=== PATIENT | female | born 1995 | race Asian ===

== ENCOUNTER 2016-08-29 00:29 | Inpatient (IN) | payer SELFPAY ==
[~2016-08-29] VITALS: Ht 160 cm; Wt 70.5 kg
[2016-08-29] VITALS (624 sets, daily range): BP systolic 129–143; BP diastolic 85–89; PULSE 104–133; TEMP 97.8–103.5; O2SAT 69–100
[2016-08-29 00:52] LABS: BASO # 0.1 (0.0-0.2); BASO % 0.3 % (0.0-2.0); EOS # 0.1 (0.0-0.7); EOS % 0.5 % (0-4.0); GRAN # 11.8 (1.4-6.5); GRAN % 64.3 % (42.2-75.2); HEMATOCRIT 42.5 % (37.0-47.0); HEMOGLOBIN 14.1 g/dl (12.5-16.0); LYMPH # 5.7 (1.2-3.4); MEAN CELL VOLUME 91 fl (80.0-100.0); MEAN CORPUSCULAR HEMOGLOBIN 30 pg (27.0-31.0); MEAN CORPUSCULAR HGB CONC 33 g/dl (33.0-37.0); MEAN PLATELET VOLUME 9.3 fl (7.4-10.4); MONO # 0.6 (0.1-0.6); MONO % 3.2 % (1.7-9.3); PLATELET COUNT 290 K/mm3 (130-400); RED BLOOD COUNT 4.68 M/mm3 (4.10-5.30); REDCELL DISTRIBUTION WIDTH-CV 12.7 % (11.5-14.5); WHITE BLOOD COUNT 18.4 K/mm3 (4.8-10.8)
[2016-08-29 01:01] LABS: PROTHROMBIN TIME 11.5 SECONDS (9.7-12.8)
[2016-08-29 01:04] LABS: ADJUSTED CALCIUM 8.9 mg/dL (8.4-10.2); ALANINE AMINOTRANSFERASE 22 U/L (9-52); ALBUMIN 4.9 gm/dL (3.5-5.0); ALKALINE PHOSPHATASE 63 U/L (50-136); ANION GAP 18 mmol/L (7-16); BILIRUBIN,TOTAL 1.2 mg/dL (0.0-1.0); BLOOD UREA NITROGEN 11 mg/dL (7-17); CALCIUM 9.6 mg/dL (8.4-10.2); CARBON DIOXIDE 21 mmol/L (22-30); CHLORIDE 104 mmol/L (98-107); CREATININE, serum 0.84 mg/dL (0.52-1.25); GLUCOSE 143 mg/dL (74-106); PARTIAL THROMBOPLASTIN TIME 27.5 SECONDS (26.0-37.0); POTASSIUM 3.1 mmol/L (3.4-5.0); SODIUM 143 mmol/L (137-145); TOTAL PROTEIN 8.7 gm/dL (6.4-8.2)
[2016-08-29 01:34] LABS: ACETAMINOPHEN < 10 ug/mL (10-30); SALICYLATE < 1.0 mg/dL
[2016-08-29 01:39] LABS: HYALINE CAST >12 /lpf; PH 7 (5-8); SQUAMOUS EPITHELIAL 0-2 /hpf; URINE APPEARANCE Hazy; URINE BACTERIA None Seen /hpf; URINE BILIRUBIN Negative (NEGATIVE); URINE BLOOD 3+ (NEGATIVE); URINE COLOR Yellow; URINE GLUCOSE Negative (NEGATIVE); URINE KETONE Negative (NEGATIVE); URINE UROBILINOGEN Negative (NEGATIVE); URINE WBC 0-2 /hpf
[2016-08-29 01:42] LABS: AMPHETAMINE URINE NEGATIVE; BARBITURATES URINE NEGATIVE; BENZODIAZEPINES URINE NEGATIVE; BUPRENORPHINE URINE NEGATIVE; METHADONE URINE NEGATIVE; OPIATES URINE NEGATIVE; OXYCODONE URINE NEGATIVE; PHENCYCLIDINE URINE NEGATIVE; PROPOXYPHENE URINE NEGATIVE; THC CANNABINOIDS URINE NEGATIVE
[2016-08-29 04:06] LABS: PH 6 (5-8); SQUAMOUS EPITHELIAL None Seen /hpf; URINE APPEARANCE Clear; URINE BACTERIA Rare /hpf; URINE BILIRUBIN Negative (NEGATIVE); URINE BLOOD 3+ (NEGATIVE); URINE COLOR Yellow; URINE GLUCOSE Negative (NEGATIVE); URINE KETONE Trace (NEGATIVE); URINE RBC >50 /hpf; URINE UROBILINOGEN Negative (NEGATIVE)
[2016-08-29 04:07] LABS: URINE WBC 0-2 /hpf
[2016-08-29 06:57] LABS: ADJUSTED CALCIUM 8.6 mg/dL (8.4-10.2); ALBUMIN 4.4 gm/dL (3.5-5.0); BILIRUBIN,TOTAL 1.2 mg/dL (0.0-1.0); CALCIUM 8.9 mg/dL (8.4-10.2); CREATININE, serum 0.73 mg/dL (0.52-1.25); POTASSIUM 3.8 mmol/L (3.4-5.0); TOTAL PROTEIN 7.7 gm/dL (6.4-8.2)
[2016-08-29 07:02] LABS: HEMOGLOBIN 12.8 g/dl (12.5-16.0); MEAN CELL VOLUME 92 fl (80.0-100.0); MEAN CORPUSCULAR HEMOGLOBIN 30 pg (27.0-31.0); MEAN CORPUSCULAR HGB CONC 33 g/dl (33.0-37.0); MEAN PLATELET VOLUME 9.3 fl (7.4-10.4); PLATELET COUNT 213 K/mm3 (130-400); RED BLOOD COUNT 4.24 M/mm3 (4.10-5.30); REDCELL DISTRIBUTION WIDTH-CV 12.8 % (11.5-14.5); WHITE BLOOD COUNT 12.5 K/mm3 (4.8-10.8)
[2016-08-29 07:23] LABS: ADD PATHOLOGY DIFF REVIEW NO
[2016-08-29 08:42] LABS: BAND 20 % (0-10); NEUTROPHILS 72 % (42.0-75.2); PLATELET ESTIMATE NORMAL (NORMAL); TOTAL CELLS COUNTED 100
[2016-08-29 17:39] LABS: BASO % 0.3 % (0.0-2.0); GRAN # 6.9 (1.4-6.5); HEMATOCRIT 34.4 % (37.0-47.0); HEMOGLOBIN 11.4 g/dl (12.5-16.0); LYMPH # 0.5 (1.2-3.4); LYMPH % 6.8 % (20.0-51.0); MEAN CELL VOLUME 91 fl (80.0-100.0); MEAN CORPUSCULAR HEMOGLOBIN 30 pg (27.0-31.0); MEAN CORPUSCULAR HGB CONC 33 g/dl (33.0-37.0); MEAN PLATELET VOLUME 9.3 fl (7.4-10.4); MONO # 0.4 (0.1-0.6); MONO % 5.5 % (1.7-9.3); PLATELET COUNT 182 K/mm3 (130-400); RED BLOOD COUNT 3.79 M/mm3 (4.10-5.30); WHITE BLOOD COUNT 7.9 K/mm3 (4.8-10.8)
[2016-08-29 17:49] LABS: ADJUSTED CALCIUM 8.4 mg/dL (8.4-10.2); ALBUMIN 3.3 gm/dL (3.5-5.0); BILIRUBIN,TOTAL 1.2 mg/dL (0.0-1.0); CALCIUM 7.8 mg/dL (8.4-10.2); CREATININE, serum 0.61 mg/dL (0.52-1.25); POTASSIUM 3.8 mmol/L (3.4-5.0); TOTAL PROTEIN 6.2 gm/dL (6.4-8.2)
[2016-08-29 17:54] LABS: INR 1.2 (0.8-3.0); PROTHROMBIN TIME 13.5 SECONDS (9.7-12.8)
[2016-08-29 18:11] LABS: TROPONIN-I 0.038 ng/mL (0.000-0.034)
== END 2016-08-29 17:51 | disposition short-term general hospital (02) | DRG 918 ==
LOC: COL.ER 00:29 → ICU 01:48
PROVIDERS: Emergency Medicine; Internal Medicine; Internal Medicine Gastroenterology
PROC: 02HV33Z Insertion of Infusion Device into Superior Vena Cava, Percutaneous Approach (ICD-10-PCS; 2016-08-29)
PROC: 0DJ08ZZ Inspection of Upper Intestinal Tract, Via Natural or Artificial Opening Endoscopic (ICD-10-PCS; principal; 2016-08-29 08:00)
DX: T54.3X2A Toxic effect of corrosive alkalis and alkali-like substances, intentional self-harm, initial encounter (principal); E87.2 Acidosis; E87.6 Hypokalemia
CPT/HCPCS: C1751; C9113; J1650; J1720; J2060; J2270; J2405; J2543; J2550; J2704; J2765; J3010; J3480; J7030; J7050; Q9967

== ENCOUNTER 2016-09-17 11:59 | Emergency (ER) | payer OTHER ==
[~2016-09-17] VITALS: Ht 170.2 cm; Wt 71.9 kg
[2016-09-17] MEDS ORDERED: PERCOCET 325 MG1 TAB PO (12:07)
[2016-09-17 13:03] VITALS: BP 108/76; PULSE 100; TEMP 97.7
== END 2016-09-17 13:15 | disposition home or self-care (01) ==
LOC: COL.ER 11:59
DX: Z48.815 Encounter for surgical aftercare following surgery on the digestive system (principal); Z48.01 Encounter for change or removal of surgical wound dressing; Z43.1 Encounter for attention to gastrostomy

== ENCOUNTER 2016-11-05 21:00 | Emergency (ER) | payer OTHER ==
[~2016-11-05] VITALS: Ht 171 cm; Wt 61.4 kg
[~2016-11-05 21:00] MED LIST: PERCOCET 325 MG1 TAB PO
[2016-11-05 21:03] VITALS: TEMP 98.7
[2016-11-05] MEDS ORDERED: TYLEINFANT PO (22:39)
[2016-11-05] MEDS ORDERED: MILK OF MA400 MG/52 (22:40)
[2016-11-05] MEDS ORDERED: PEPCID AC20 MG PO (22:40)
[2016-11-05] MEDS ORDERED: ZOFRAN 4MG T4 MG/TAB PO (22:40)
[2016-11-05] MEDS ORDERED: SENOKOT8.6 MG PO (22:41)
[2016-11-05] MEDS ORDERED: ZOLOFT20 MG/ML PO (22:41)
[2016-11-05] MEDS ORDERED: TRANSDERM-0.5 MG/21 TD (22:41)
[2016-11-05] MEDS ORDERED: ULTRAM 50MG TAB50 MG (22:42)
[2016-11-06 00:50] VITALS: BP 138/86; PULSE 101
== END 2016-11-06 00:53 | disposition short-term general hospital (02) ==
LOC: COL.ER 21:00
DX: Z43.1 Encounter for attention to gastrostomy (principal)